=== PATIENT | female | born 1935 | race Two or more races ===

== ENCOUNTER → 2017-01-18 | Outpatient (CLI) | payer OTHER, MEDICAID | END | disposition home or self-care (01) | LOC: Rad HDHVI 14:03 | PROVIDERS: ATTEND Internal Medicine Cardiovascular Disease | DX: R07.89 Other chest pain (principal); R09.89 Other specified symptoms and signs involving the circulatory and respiratory systems | CPT/HCPCS: 93880 ==

== ENCOUNTER → 2017-01-21 | Outpatient (CLI) | payer OTHER, MEDICAID | END | disposition home or self-care (01) | LOC: Rad HDHVI 14:07 | PROVIDERS: ATTEND Internal Medicine Cardiovascular Disease | DX: R07.9 Chest pain, unspecified (principal); R06.02 Shortness of breath; R42 Dizziness and giddiness | CPT/HCPCS: 93306 ==

== ENCOUNTER → 2017-01-24 | Outpatient (CLI) | payer OTHER, MEDICAID ==
[~2017-01-24] VITALS: Ht 157.5 cm; Wt 69.9 kg
[~2017-01-24] MED LIST: DIPYRIDAMOLE (5MG/ML) 10 ML VIAL IV ONE
[2017-01-24 16:30] VITALS: BP 108/79
[2017-01-24 17:00] VITALS: BP 144/61
== END | disposition home or self-care (01) ==
LOC: Rad HDHVI 14:44
PROVIDERS: ATTEND Internal Medicine Cardiovascular Disease
DX: I10 Essential (primary) hypertension (principal); I20.9 Angina pectoris, unspecified; J44.9 Chronic obstructive pulmonary disease, unspecified; E78.5 Hyperlipidemia, unspecified; E11.9 Type 2 diabetes mellitus without complications; J45.909 Unspecified asthma, uncomplicated; F32.9 Major depressive disorder, single episode, unspecified
CPT/HCPCS: 78452; 82962; 93005; 96374; 96375; A9500; G0463; J1245

== ENCOUNTER → 2017-02-08 | Outpatient (CLI) | payer OTHER, MEDICAID ==
[~2017-02-08] MED LIST changes: +ALPR0.254 PO; +AMLO5TAB2 PO; +ASPI81TA27 PO; -DIPYRIDAMOLE (5MG/ML) 10 ML VIAL IV ONE; +GEMF600T3 PO; +GLIP-116 PO; +LEVO100T8 PO; +MECL-87 PO; +MONT5CHW17 PO; +OME20T PO; +SERT-274 PO; +TRAM50TA2 PO; +TRAZ50TA2 PO
[2017-02-08 11:00] VITALS: BP 126/51
[2017-02-08 12:00] VITALS: BP 130/54
[2017-02-08 16:25] LABS: Basophils # (auto) 0 uL; Eosinophils # (auto) 0.1 uL; Hematocrit 19.9 % (36.0-46.0); Lymphocytes # (auto) 0.7 uL; Mean Platelet Volume 8.1 fL (6.9-10.8); Monocytes # (auto) 0.6 uL; Neutrophils # (auto) 3.2 uL; Nucleated Red Blood Cells % 0.2 %; White Blood Cell 4.6 10^3/uL (4.4-10.8)
[2017-02-08 16:28] LABS: Basophils % (auto) 0.6 % (0.0-2.0); Eosinophils % (auto) 1.2 % (0.0-7.0); Mean Corpuscular Hemoglobin 17.2 pg (28.0-32.0); Mean Corpuscular Hgb Conc. 27.9 g/dL (32.0-36.0); Mean Corpuscular Volume 61.6 fL (80.0-100.0); Monocytes % (auto) 13.3 % (0.0-12.0); Neutrophils % (auto) 68.9 % (37.0-80.0); Platelet Count (auto) 86 10^3/uL (140-450)
[2017-02-08 16:35] LABS: BUN/Creatinine Ratio 14.6; Calcium 8.4 mg/dL (8.5-10.1); Potassium 3.9 mmol/L (3.5-5.1)
[2017-02-08 16:42] LABS: INR 0.98 (0.9-1.15); Partial Thromboplastin Time 23.4 sec (22.64-33.71); Prothrombin Time 10.7 sec (9.37-12.3)
[2017-02-08 16:44] LABS: Red Cell Distribution Width 21.9 % (11.8-14.3)
[2017-02-08 16:48] LABS: Hemoglobin 5.6 g/dL (12.2-16.2)
[2017-02-08 18:13] LABS: Ovalocytes FEW; Platelet Estimate Decreased; Tear Drop Cells FEW
[2017-02-08 18:14] LABS: Anisocytosis Moderate; Hypochromia Marked; Microcytosis Marked; Stomatocytes Few
== END | disposition home or self-care (01) ==
LOC: Rad HDHVI 11:07
PROVIDERS: ATTEND Internal Medicine Cardiovascular Disease
DX: Z01.818 Encounter for other preprocedural examination (principal); I70.0 Atherosclerosis of aorta; R91.8 Other nonspecific abnormal finding of lung field; I10 Essential (primary) hypertension; D64.9 Anemia, unspecified; R79.1 Abnormal coagulation profile; Z79.899 Other long term (current) drug therapy
CPT/HCPCS: 36415; 71020; 80048; 82962; 85025; 85610; 85730; G0463

== ENCOUNTER 2019-02-15 14:37 | Inpatient (IN) | payer OTHER, MEDICAID ==
[~2019-02-15] VITALS: Ht 157.5 cm; Wt 63.1 kg
[~2019-02-15 14:37] MED LIST changes: +AMLO5TAB15 PO; -AMLO5TAB2 PO; -ASPI81TA27 PO; +DONETAB6 PO; +FERR-20 PO; -GEMF600T3 PO; +GEMF600T7 PO; -GLIP-116 PO; +GLIP10TA9 PO; -OME20T PO; +OXYB10TA14 PO; +PANT40TA2 PO
[2019-02-16] MEDS ORDERED: MORPHINE SULF INJ 2 MG/ML SYRINGE 1ML IV PRN ×2 (00:45)
[2019-02-16] MEDS ORDERED: NITROGLYCERIN 0.4 MG SL TAB SL PRN (00:45)
[2019-02-16] MEDS ORDERED: ONDANSETRON HCL 4 MG/2 ML VIAL IV PRN (00:45)
[2019-02-16 01:12] LABS: Basophils # (auto) 0.1 uL; Basophils % (auto) 0.8 % (0.0-2.0); Eosinophils # (auto) 0 uL; Eosinophils % (auto) 0.4 % (0.0-7.0); Hemoglobin 13.7 g/dL (12.2-16.2); Monocytes # (auto) 0.8 uL; Monocytes % (auto) 10.1 % (0.0-12.0)
[2019-02-16 01:13] LABS: Hematocrit 39.6 % (36.0-46.0); Lymphocytes # (auto) 1.6 uL; Lymphocytes % (auto) 19.8 % (10.0-50.0); Mean Corpuscular Hemoglobin 33.6 pg (28.0-32.0); Mean Corpuscular Hgb Conc. 34.6 g/dL (32.0-36.0); Neutrophils # (auto) 5.7 uL; Neutrophils % (auto) 68.9 % (37.0-80.0); Platelet Count (auto) 64 10^3/uL (140-450); Red Blood Cells 4.09 10^6/uL (4.0-5.20); Red Cell Distribution Width 12.3 % (11.8-14.3); White Blood Cell 8.3 10^3/uL (4.4-10.8)
[2019-02-16 01:30] VITALS: BP 109/88
--- NOTE | 2019-02-16 01:30 | NUR ---
Telemetry admit from ER DON ACOSTA admitted to Telemetry unit. Patient oriented to Radha Reid, primary RN, unit, room, bed, and unit policies regarding patient care and visiting hours. Patient now on continuous telemetry monitoring, tele box # 30. Patient weighed by bedscale and encouraged to call if they need something. All questions and concerns addressed, patient verbalized understanding.
[2019-02-16 01:31] LABS: Albumin 2.9 g/dL (3.4-5.0); BUN/Creatinine Ratio 12.5; Calcium 8.3 mg/dL (8.5-10.1); Potassium 3.2 mmol/L (3.5-5.1)
[2019-02-16 01:33] LABS: Bilirubin, Total 0.5 mg/dL (0.2-1.0); Total Protein 6.7 g/dL (6.4-8.2)
--- NOTE | 2019-02-16 02:38 | NUR ---
paged dr ramirez patients potassium is 3.2.
--- NOTE | 2019-02-16 03:43 | NUR ---
IV insertion IV access obtained, via clean sterile technique by inserting 22 gauge catheter at right forearm after 2 attempt(s). IV secured properly. No trauma to site. Patient tolerated well.
[2019-02-16 05:00] VITALS: BP 109/66
[2019-02-16 09:00] VITALS: BP 112/66
--- NOTE | 2019-02-16 09:28 | NUR ---
GISELLE, PATIENT'S BROTHER IN LAW, CALLED TO GIVE NUMBERS OF HER DAUGHTERS THAT LIVE IN [place] SO THEY CAN MAKE DECISIONS FOR THE PATIENT. HE CAN NOT TAKE CARE OF HER ANYMORE. HE SAID SHE CAN NOT LIVE WITH HIM.
[2019-02-16] MEDS: ENOXAPARIN SOD 40 MG/0.4 ML SYRINGE SC SCH (09:59)
--- NOTE | 2019-02-16 11:26 | NUR ---
DR JC AT BEDSIDE. SAID HE WANTS DR SCHMIDT TO SEE HER.
[2019-02-16] MEDS: HYDROcodone-ACET 10/325MG TAB PO PRN ×2 (12:39→18:07)
[2019-02-16 13:00] VITALS: BP 113/72
--- NOTE | 2019-02-16 15:41 | NUR ---
assessment Patient is a 83 year old female who is alert and oriented. Patients cognitive abilities are intact. Prior to admission patient lived home with her son in law Meek and functioned independently. Patient informed me she is able to care for her own ADLs. Meek informed me he is patients [facility] caregiver. 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 Patient informed me she was cooking and turned and lost her balance and fell and fractured her ankle. Per patient she will return home to her prior living arrangements post discharge and Meek will transport her home. Patient may benefit from home health for PT on discharge. Patient has a fww and a wheelchair for home use. Patient informed me she feels safe returning home on discharge. I informed patient she has a right to speak to a social security assessor regarding all care. I informed patient she has a right to participate in any and all discharge planning. Patient has a POA and advanced directive. Patient verbalized understanding and agreed to discharge plan. Addendum: 02/16/19 at 1543 by Melissa LACEY Amended: Links added.
[2019-02-16 17:00] VITALS: BP 127/62
--- NOTE | 2019-02-16 17:37 | NUR ---
re-assessment re: ss consults Per ss consult patient has limited support system. 2nd ss consult discharge planning. Patient lives with her brother in law. Per patient she has good family support. Patient will return home with Meek on discharge. Meek is her [facility] caregiver. Patient also informed me she will be moving to [place] soon to be with her daughter. Addendum: 02/16/19 at 1739 by Melissa Mcclain Amended: Links added.
--- NOTE | 2019-02-16 19:20 | NUR ---
Opening Shift Note Received report from Renée MOLINA. Assumed care of patient, awake and alert. No S/S of distress/SOB or pain. Instructed on POC and to call for assist PRN. Fall precaution measures in place, will continue to monitor for changes Q1hr and PRN.
[2019-02-16 22:00] VITALS: BP 124/59
[2019-02-17] MEDS: HYDROcodone-ACET 10/325MG TAB PO PRN (03:52)
[2019-02-17 05:00] VITALS: BP 114/67
[2019-02-17 09:28] VITALS: BP 112/64
[2019-02-17] MEDS: ENOXAPARIN SOD 40 MG/0.4 ML SYRINGE SC SCH (10:25)
[2019-02-17 13:00] VITALS: BP 132/67
[2019-02-17 16:50] VITALS: BP 133/71
[2019-02-17 22:00] VITALS: BP 115/81
[2019-02-18 05:00] VITALS: BP 135/57
[2019-02-18 08:30] VITALS: BP 135/70
[2019-02-18] MEDS: ENOXAPARIN SOD 40 MG/0.4 ML SYRINGE SC SCH (10:22)
[2019-02-18 12:30] VITALS: BP 133/57
[2019-02-18 17:00] VITALS: BP 124/63
--- NOTE | 2019-02-18 19:40 | NUR ---
Opening Shift Note Assumed care of patient, awake and alert. No S/S of distress/SOB or pain. Noted bandage on right leg, patient can use bedside commode with SB assist. Instructed on POC and to call for assist as needed, patient verbalized understanding, call light within reach, will continue to monitor for changes Q1hr and PRN.
[2019-02-18 22:00] VITALS: BP 102/60
[2019-02-19 09:00] VITALS: BP 139/69
[2019-02-19] MEDS: ENOXAPARIN SOD 40 MG/0.4 ML SYRINGE SC SCH (10:27)
--- NOTE | 2019-02-19 11:53 | NUR ---
NUTRITION ASSESSMENT NOTES Please refer to link notes of nutrition screen form filed under the intervention section of the plan of care for further details. Est. Needs: 1550 kcal to 1900 kcal (25-30 kcal/kgBW), 50 gms to 63 gms pro (0.8-1.0 gms/kgBW). Will continue to monitor pertinent labs and reassess nutrient need prn Thank you. Addendum: 02/19/19 at [address] Amended: Links added.
[2019-02-19 12:00] VITALS: BP 125/69
--- NOTE | 2019-02-19 15:37 | NUR ---
D/C Planning Per consult for SNF Placement. Contacted and faxed medical records to [facility], [facility] and [facility]. Per Jeffry from [facility] Ph:) Fax:) Pt has been accepted to room [address] Marx. Contacted [facility] Ph:( [phone]) Fax:) faxed medical records requesting authorization #. Michael Koch from [facility] authorization for SNF is [id number] and for transportation [id number]. will set up transportation upon d/c . Addendum: 02/19/19 at 1600 by AVA STEELE Amended: Links added.
[2019-02-19 17:00] VITALS: BP 116/72
--- NOTE | 2019-02-19 20:20 | NUR ---
Dr. Marx at bedside
[2019-02-19 22:04] VITALS: BP 131/83
[2019-02-20 05:55] VITALS: BP 137/79
--- NOTE | 2019-02-20 07:15 | NUR ---
Opening Shift Note Assumed care of patient, awake and alert. No S/S of distress/SOB or pain. Instructed on POC,Nursing routines and to call for assist PRN, will continue to monitor for changes Q1hr and PRN.
[2019-02-20 09:00] VITALS: BP 131/71
[2019-02-20] MEDS: ENOXAPARIN SOD 40 MG/0.4 ML SYRINGE SC SCH (10:47)
--- NOTE | 2019-02-20 12:25 | NUR ---
[facility] INFORMED PATIENT DISCHARGE PLAN TO [facility],PATIENT VERBALIZED UNDERSTANDING AND AGREED TRANSFER TO THE FACILITY.
[2019-02-20 13:00] VITALS: BP 143/78
--- NOTE | 2019-02-20 13:10 | NUR ---
BROTHER IN LAW GISELLE HERE TO VISIT,STATED PATIENT INFORMED HIM THAT SHE IS BEING TRANSFERRED TO [facility],STATED THAT HIM AND PATIENT ARE NOT AGREEING FOR HER TO BE TRANSFERRED THERE,DUE TO PATIENT SISTER WHO IS HIS THERE LAST NOVEMBER.PATIENT BROTHER IN LAW RE ASSURED WILL INFORM ANALYTICS ASSOCIATE TO DISCUSSED THIS MATTER AND FOR OTHER OPTIONS.
--- NOTE | 2019-02-20 14:25 | NUR ---
MD VISIT DR. JC HERE TO SEE AND EXAMINED PATIENT,MADE AWARE BY TILE MOLDER THAT PATIENT AND BROTHER IN LAW REFUSING TO BE TRANSFERRED TO [facility].MD SPOKE TO PATIENT AND BROTHER IN LAW,SPOKE TO TILE MOLDER TO FIND A DIFFERENT SNF.
--- NOTE | 2019-02-20 15:47 | NUR ---
PT 1ST ATTEMPT PT WAS EATING BREAKFAST 2ND ATTEMPT PT WAS EATING LUNCH 3RD ATTEMPT PT REFUSED TO GET OUT OF BED. TRACY HATFIELD WAS NOTIFIED. Addendum: 02/20/19 at 1548 by KIRK HUA PTT Amended: Links added.
[2019-02-20] MEDS ORDERED: ARTIFICIAL TEARS 15ml EACHEYE PRN (16:00)
--- NOTE | 2019-02-20 16:40 | NUR ---
[facility] CALLED,PATIENT IS ACCEPTED AT [facility] BED [address] UND[address] JC TO BE TRANSPORTED BY [facility] AT 7 PM
[2019-02-20 17:00] VITALS: BP 148/98
--- NOTE | 2019-02-20 17:12 | NUR ---
CALLED GISELLE CORNELIUS BROTHER IN LAW AT [phone] TO INFORM RE PATIENT TRANSFER TO [facility].
--- NOTE | 2019-02-20 17:24 | NUR ---
D/C government sales manager Rebecca advised me Pt did not want to go to [facility] because her brother in law had a bad experience. TRACY Vu, ABHIJIT Villegas and my self spoke to Pt regarding placement. Informed Pt referral was sent to [facility], [facility] and [facility] on 02/19/19 however, [facility] was the only facility with beds available. Pt stated she did not want to go [place] the [place] and would agree to go to [facility]. At 14:00 Pt change her mind again stated she would like me to try a different facility. Advised Pt I would try [facility] and [facility] again however, if they did not have beds available referral would be sent to [facility] in [place] and [facility] in [place]. Contacted [facility]. Per Elle from Admission she is unable to accept patient at the moment. Per Mar from [facility] Ph:) Fax:) Pt has been accepted to room [address] accepting MD Dr[address] Marx. Followed up call to [facility] Ph:) spoke to Zee. Informed Zee Skill Placement change to [facility]. Per Zee from [facility] authorization for SNF is [id number]. Contacted [facility] transport Ph:( [phone]) Fax:( [phone]) faxed transportation form requesting roller picker time to be at 19:00 via [employer]. Informed Pt at bedside Pt verbalize understanding d/c plan. Informed TRACY Vu. Addendum: 02/20/19 at 1800 by AVA LACEY Amended: Links added.
--- NOTE | 2019-02-20 18:16 | NUR ---
REPORT RE PATIENT STATUS AND FOR CONTINUATION OF CARE GIVEN TO BETTY MOLINA AT [facility]
--- NOTE | 2019-02-20 19:17 | NUR ---
Discharge instructions given as ordered. Encourage to follow up with PMD as instructed. All questions and concerns addressed. Patient verbalized understanding. Medication reconciliation form completed and copy given to patient. IV removed with catheter intact, pressure dressing applied. Telemetry unit returned to ICU. Patient picked up by transport via stretcher. No distress noted at time of departure.
== END 2019-02-20 19:17 | DRG 563 ==
LOC: ER 14:37 → EDBD 14:37 → TELE 14:38 → TELE-CENTR 02-16 01:50
PROVIDERS: ADMIT Internal Medicine; ATTEND Internal Medicine
DX: S82.891A Other fracture of right lower leg, initial encounter for closed fracture (principal); S82.424A Nondisplaced transverse fracture of shaft of right fibula, initial encounter for closed fracture; E11.9 Type 2 diabetes mellitus without complications; F03.90 Unspecified dementia, unspecified severity, without behavioral disturbance, psychotic disturbance, mood disturbance, and anxiety; I10 Essential (primary) hypertension; I25.10 Atherosclerotic heart disease of native coronary artery without angina pectoris; J44.9 Chronic obstructive pulmonary disease, unspecified; M11.20 Other chondrocalcinosis, unspecified site; E87.6 Hypokalemia; M19.071 Primary osteoarthritis, right ankle and foot; M85.871 Other specified disorders of bone density and structure, right ankle and foot; W18.30XA Fall on same level, unspecified, initial encounter; Z80.0 Family history of malignant neoplasm of digestive organs; Z82.49 Family history of ischemic heart disease and other diseases of the circulatory system; Z83.3 Family history of diabetes mellitus; Z86.73 Personal history of transient ischemic attack (TIA), and cerebral infarction without residual deficits; Z90.710 Acquired absence of both cervix and uterus; Y93.89 Activity, other specified; Y92.89 Other specified places as the place of occurrence of the external cause; Y99.8 Other external cause status; I25.2 Old myocardial infarction; Z79.899 Other long term (current) drug therapy
CPT/HCPCS: 36415; 73562; 73610; 80053; 85025; 87081; 97116; 97163; 97530; G0378